=== PATIENT | female | born 1960 | race Hispanic/Latino ===

== ENCOUNTER 2018-05-27 14:26 | Emergency (ER) | payer OTHER ==
[2018-05-27] MEDS ORDERED: IBUPROFEN 600 MG TABLET ONE (14:40)
== END 2018-05-27 15:12 | disposition home or self-care (01) ==
LOC: EDH 14:26
DX: S90.111A Contusion of right great toe without damage to nail, initial encounter (principal); W20.8XXA Other cause of strike by thrown, projected or falling object, initial encounter; Y93.89 Activity, other specified; Y92.69 Other specified industrial and construction area as the place of occurrence of the external cause; Y99.8 Other external cause status
CPT/HCPCS: 73660